=== PATIENT | female | born 1985 | race Caucasian/White ===

== ENCOUNTER 2017-02-21 08:08 | Emergency (ER) | payer MEDICAID ==
[~2017-02-21] VITALS: Ht 157.5 cm; Wt 65.0 kg
[~2017-02-21 08:08] MED LIST: ALBU6.7H INH; PRED10PA2 PO
[2017-02-21 08:11] VITALS: BP 134/70; PULSE 80; RESP 14; TEMP 97.9; O2SAT 99
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
[2017-02-21] MEDS ORDERED: BACT800T5 PO (08:32)
[2017-02-21] MEDS ORDERED: BACT2OIN TOPICAL (08:32)
== END 2017-02-21 08:57 | disposition home or self-care (01) ==
LOC: NEPK 08:08
DX: L03.113 Cellulitis of right upper limb (principal); D64.9 Anemia, unspecified; J45.909 Unspecified asthma, uncomplicated; F17.210 Nicotine dependence, cigarettes, uncomplicated
CPT/HCPCS: 99283

== ENCOUNTER 2017-04-30 00:29 | Emergency (ER) | payer MEDICAID ==
[~2017-04-30] VITALS: Ht 154.9 cm; Wt 70.0 kg
[~2017-04-30 00:29] MED LIST changes: +BACT2OIN TOPICAL; +BACT800T5 PO; -PRED10PA2 PO
[2017-04-30 00:31] VITALS: BP 107/67; PULSE 80; RESP 16; TEMP 98.4; O2SAT 99
[2017-04-30] MEDS ORDERED: ALBU1.25 NEB (01:38)
[2017-04-30] MEDS ORDERED: NEBULIZER1 MI1 (01:38)
--- NOTE | 2017-04-30 01:50 | PD ---
HPI Chief Complaint: Abdominal Pain Time Seen by Provider: 01:50 Travel History International Travel<30 days: No Contact w/Intl Traveler<30days: No Traveled to known affect area: No History of Present Illness HPI 31-year-old female came to the emergency room with history of flulike symptoms for past 1 day. Patient says that she went to [facility] and when she came back she was sneezing followed by some sore throat and her neck lymph nodes felt swollen. She has been nauseous and started to have diarrhea. She has had 5-6 episodes of diarrhea that are mostly watery and nonbloody. She took some NyQuil earlier yesterday. Her vital signs were stable in the triage. No known sick contacts otherwise. [facility] Past Medical History Narrative Medical List of her past medical, surgical, social and family history was reviewed from the nursing note. Hx Anticoagulant Therapy: No Anemia: Yes Asthma: Yes Blood Disorders: No Cancer: No Cardiovascular Problems: No Chemotherapy: No Cerebrovascular Accident: No Diabetes: No Diminished Hearing: No Endocrine: No Gastrointestinal Disorders: Yes (N/V) Genitourinary: No Hypertension: No Immune Disorder: No Musculoskeletal: No Neurologic: No Psychiatric: No Reproductive: No Respiratory: Yes (ASTHMA) Immunizations Current: No ?: Unknown LMP: 04/05/17 : 5 Para: 3 Miscarriage: 1 : 1 Past Surgical History Section: No Hysterectomy: No Other Surgery: Yes (INCISION AND DRAINAGE OF ABSCESS THROAT) Social History Alcohol Use: Yes (social) Tobacco Use: Yes (1/2 pack) Substance Use: No Allergies-Medications (Allergen,Severity, Reaction): Coded Allergies: Ceclor (Verified Allergy, Severe, RASH, 04/30/17) Cleocin (Verified Allergy, Severe, 04/30/17) Codeine (Verified Allergy, Severe, Rash, 04/30/17) Ibuprofen (Verified Allergy, Severe, SOB, 04/30/17) Comments List of her allergies reviewed from the nursing note. Reported Meds & Prescriptions Reported Meds & Active Scripts Active Reported Albuterol Neb (Albuterol Sulfate) 1.25 Mg/3 Ml Neb 1.25 Mg NEB Q6HR NEB PRN Nebulizer 1 Mis Mis 1 Ea .ROUTE DIRECTED Proventil Hfa 6.7 GM Inh (Albuterol Sulfate) 90 Mcg/Act Aer 1 Puff INH Q4H PRN Narrative Medication List of her home medications reviewed from the nursing note. Review of Systems Except as stated in HPI: all other systems reviewed are Neg Physical Exam Narrative GENERAL: Awake, alert, anxious, significant distress SKIN: Focused skin assessment warm/dry. HEAD: Atraumatic. Normocephalic. EYES: Pupils equal and round. No scleral icterus. No injection or drainage. ENT: No nasal bleeding or discharge. Mucous membranes pink and moist. NECK: Trachea midline. No JVD. CARDIOVASCULAR: Regular rate and rhythm. No murmur appreciated. RESPIRATORY: No accessory muscle use. Clear to auscultation. Breath sounds equal bilaterally. GASTROINTESTINAL: Abdomen soft, non-tender, nondistended. Hepatic and splenic margins not palpable. MUSCULOSKELETAL: No obvious deformities. No clubbing. No cyanosis. No edema. NEUROLOGICAL: Awake and alert. No obvious cranial nerve deficits. Motor grossly within normal limits. Normal speech. PSYCHIATRIC: Appropriate mood and affect; insight and judgment normal. Data Data Last Documented VS Vital Signs Date Time Temp Pulse Resp B/P Pulse Ox O2 Delivery O2 Flow Rate FiO2 04/30/17 02:21 100 Room Air 04/30/17 00:31 98.4 80 16 107/67 Orders Basic Metabolic Panel (Bmp) (04/30/17 01:57) Complete Blood Count With Diff (04/30/17 01:57) Iv Access Insert/Monitor (04/30/17 01:57) Ecg Monitoring (04/30/17 01:57) Oximetry (04/30/17 01:57) Sodium Chloride 0.9% Flush (Ns Flush) (04/30/17 02:00) Blood Culture (04/30/17 01:57) C-Reactive Protein (Crp) (04/30/17 01:57) Sodium Chlor 0.9% 1000 Ml Inj (Ns 1000 M (04/30/17 02:00) Influenzae A/B Antigen (04/30/17 01:57) Urinalysis - C+S If Indicated (04/30/17 03:03) Morphine Inj (Morphine Inj) (04/30/17 03:45) Ondansetron Inj (Zofran Inj) (04/30/17 03:45) Morphine Inj (Morphine Inj) (04/30/17 03:39) Morphine Inj (Morphine Inj) (04/30/17 04:39) Labs Laboratory Tests Test 04/30/17 04/30/17 02:15 03:20 White Blood Count 7.1 TH/MM3 Red Blood Count 4.60 MIL/MM3 Hemoglobin 12.8 GM/DL Hematocrit 38.6 % Mean Corpuscular Volume 83.9 FL Mean Corpuscular Hemoglobin 27.9 PG Mean Corpuscular Hemoglobin 33.3 % Concent Red Cell Distribution Width 15.0 % Platelet Count 163 TH/MM3 Mean Platelet Volume 9.0 FL Neutrophils (%) (Auto) 56.7 % Lymphocytes (%) (Auto) 25.6 % Monocytes (%) (Auto) 7.6 % Eosinophils (%) (Auto) 9.7 % Basophils (%) (Auto) 0.4 % Neutrophils # (Auto) 4.0 TH/MM3 Lymphocytes # (Auto) 1.8 TH/MM3 Monocytes # (Auto) 0.5 TH/MM3 Eosinophils # (Auto) 0.7 TH/MM3 Basophils # (Auto) 0.0 TH/MM3 CBC Comment DIFF FINAL Differential Comment Sodium Level 140 MEQ/L Potassium Level 3.7 MEQ/L Chloride Level 108 MEQ/L Carbon Dioxide Level 24.9 MEQ/L Anion Gap 7 MEQ/L Blood Urea Nitrogen 6 MG/DL Creatinine 0.76 MG/DL Estimat Glomerular Filtration 89 ML/MIN Rate Random Glucose 76 MG/DL Calcium Level 8.2 MG/DL C-Reactive Protein 2.42 MG/DL Urine Color LIGHT-YELLOW Urine Turbidity CLEAR Urine pH 7.0 Urine Specific [place] 1.007 Urine Protein NEG mg/dL Urine Glucose (UA) NEG mg/dL Urine Ketones NEG mg/dL Urine Occult Blood SMALL Urine Nitrite NEG Urine Bilirubin NEG Urine Urobilinogen LESS THAN 2.0 MG/DL Urine Leukocyte Esterase NEG Urine RBC 3 /hpf Urine WBC 1 /hpf Urine Squamous Epithelial 2 /hpf Cells Urine Bacteria RARE /hpf Urine Mucus FEW /lpf Microscopic Urinalysis Comment CULT NOT INDICATED MDM Medical Decision Making Medical Screen Exam Complete: Yes Emergency Medical Condition: Yes Medical Record Reviewed: Yes Differential Diagnosis Viral illness, UTI Narrative Course 3:04 AM blood test results of back and CRP is elevated. Rest of the blood test results are within normal limits. Awaiting for the UA. Patient was given 1 L of IV fluid bolus. 3:52 AM I'm unable to explain the elevated CRP. However her blood test otherwise in the UA are all within normal limits. All her symptoms are otherwise very much suggestive of viral illness. I will discharge her home. Procedures EKG Prior to Arrival: No Diagnosis Primary Impression: Viral illness Referrals: Primary Care Physician Additional Instructions: Please return to the ER if the condition worsens or any other new concerns. Otherwise follow-up with your primary care in couple days. Take Tylenol/Motrin/ Advil/ibuprofen for your symptoms and drink plenty of fluids to keep herself hydrated. Med/Other Pt SpecificInfo: No Change to Meds Disposition: 01 DISCHARGE HOME Condition: Stable Macey Cruz MD Apr 30, 2017 01:50
[2017-04-30] MEDS ORDERED: SODIUM CHLORIDE 0.9% FLUSH 10 ML FLUSH IV FLUSH PRN (02:00)
[2017-04-30] MEDS ORDERED: SODIUM CHLOR 0.9% 1000 ML INJ 1,000 ML IV ONE (02:00)
[2017-04-30 02:21] VITALS: O2SAT 100
[2017-04-30 02:28] LABS: BASOPHIL % 0.4 % (0.0-2.0); EOSINOPHIL # 0.7 TH/MM3 (0-0.4); EOSINOPHIL % 9.7 % (0.0-4.0); HEMATOCRIT 38.6 % (35.0-46.0); HEMO FLAGS DIFF FINAL; LYMPH % 25.6 % (9.0-44.0); LYMPHOCYTE # 1.8 TH/MM3 (1.0-4.8); MEAN CELL VOLUME 83.9 FL (80.0-100.0); MEAN CORPUSCULAR HEMOGLOBIN 27.9 PG (27.0-34.0); MEAN CORPUSCULAR HGB CONC 33.3 % (32.0-36.0); MONO % 7.6 % (0.0-8.0); NEUT % 56.7 % (16.0-70.0); PLATELET COUNT 163 TH/MM3 (150-450); WHITE BLOOD COUNT 7.1 TH/MM3 (4.0-11.0)
[2017-04-30 02:46] LABS: BICARBONATE 24.9 MEQ/L (21.0-32.0); POTASSIUM 3.7 MEQ/L (3.5-5.1)
[2017-04-30] MEDS ORDERED: MORPHINE SULFATE 8 MG/ML INJ ONE ×2 (03:39→04:39)
[2017-04-30 03:41] LABS: BACTERIA, URINE RARE /hpf; BLOOD, URINE SMALL (NEG); GLUCOSE,URINE NEG (NEG); KETONE, URINE NEG (NEG); MUCUS URINE FEW /lpf (OCC); NITRITE,URINE NEG (NEG); SQUAMOUS EPITHELIAL CELL URINE 2 /hpf (0-5); URINE COLOR LIGHT-YELLOW (YELLW/STRAW)
[2017-04-30 03:42] LABS: COMMENT (UR) CULT NOT INDICATED; CULTURE IF INDICATED CULT NOT INDICATED
[2017-04-30] MEDS ORDERED: ONDANSETRON HCL 4 MG/2 ML VIAL IV PUSH ONE (03:45)
[2017-04-30] MEDS ORDERED: MORPHINE SULFATE 4 MG/ML INJ IV PUSH ONE (03:45)
== END 2017-04-30 05:10 | disposition home or self-care (01) ==
LOC: NEPE 00:29
DX: B34.9 Viral infection, unspecified (principal)
CPT/HCPCS: 80048; 81001; 85025; 86140; 87040; 87804; 96361; 96374; 96375; 99284; J2270; J2405; J7030

== ENCOUNTER 2017-06-14 10:38 | Emergency (ER) | payer MEDICAID ==
[~2017-06-14] VITALS: Ht 157.5 cm; Wt 65.0 kg
[~2017-06-14 10:38] MED LIST changes: +ALBU1.25 NEB; -BACT2OIN TOPICAL; -BACT800T5 PO; +NEBULIZER1 MI1
[2017-06-14 10:40] VITALS: BP 127/72; PULSE 78; RESP 15; TEMP 98.2; O2SAT 99
[2017-06-14] MEDS ORDERED: AMOX500C PO (11:20)
[2017-06-14 11:22] VITALS: BP 122/84; PULSE 75; RESP 16; TEMP 98.1; O2SAT 97
[2017-06-14] MEDS ORDERED: DEXAMETHASONE SOD PHOS 20 MG/5 ML VIAL OTHER ONE (11:45)
[2017-06-14] MEDS ORDERED: HYDR-3533 PO (11:48)
[2017-06-14] MEDS ORDERED: PERI0.126 SWISH-SPIT (11:48)
[2017-06-14] MEDS ORDERED: PRED-503 PO (11:48)
[2017-06-14] MEDS ORDERED: AUGM875T3 PO (11:48)
--- NOTE | 2017-06-14 11:48 | PD ---
HPI Chief Complaint: Oral / Dental Pain or Problem Time Seen by Provider: 11:18 Travel History International Travel<30 days: No Contact w/Intl Traveler<30days: No Traveled to known affect area: No History of Present Illness HPI 31-year-old woman [place]. She's been having pain and swelling since. She spent a course of amoxicillin. She still has pain and swelling The Right Side of Her Neck Discomfort Little Bit Worse. She Had an Episode at Work Last Time She Had Chest Pain and Trouble Breathing and Lightheadedness. She Not Really Taken Her Pain Medicines. She Followed up with Her Dentist on Saturday, 4 Days Ago, When She Had a Little Bit of Cutting on One Side of Her Gums. History Past Medical History Narrative Medical Asthma Influenza Vaccination: No LMP: EARLY MAY 2017 : 5 Para: 3 Social History Alcohol Use: Yes (social) Tobacco Use: Yes (1/2 pack) Allergies-Medications (Allergen,Severity, Reaction): Coded Allergies: cefaclor (Unverified Allergy, Severe, RASH, 06/14/17) clindamycin (Unverified Allergy, Severe, 06/14/17) codeine (Unverified Allergy, Severe, Rash, 06/14/17) ibuprofen (Unverified Allergy, Severe, SOB, 06/14/17) Reported Meds & Prescriptions Reported Meds & Active Scripts Active Reported Amoxicillin 500 Mg Cap 500 Mg PO QID Albuterol Neb (Albuterol Sulfate) 1.25 Mg/3 Ml Neb 1.25 Mg NEB Q6HR NEB PRN Proventil Hfa 6.7 GM Inh (Albuterol Sulfate) 90 Mcg/Act Aer 1 Puff INH Q4H PRN Review of Systems Except as stated in HPI: all other systems reviewed are Neg Physical Exam Narrative GENERAL: 31-year-old woman, no acute distress. SKIN: Focused skin assessment warm/dry. HEAD: Atraumatic. Normocephalic. EYES: Pupils equal and round. No scleral icterus. No injection or drainage. ENT: No nasal bleeding or discharge. Mucous membranes pink and moist. All her teeth of them pulled. She's got some maceration and irritation especially in the right buccal fold in the lower jaw, and in the left upper. There is no purulent drainage. NECK: Trachea midline. No JVD. Anterior cervical adenopathy in the right side. CARDIOVASCULAR: Regular rate and rhythm. No murmur appreciated. RESPIRATORY: No accessory muscle use. Clear to auscultation. Breath sounds equal bilaterally. GASTROINTESTINAL: Abdomen soft, non-tender, nondistended. Hepatic and splenic margins not palpable. MUSCULOSKELETAL: No obvious deformities. No clubbing. No cyanosis. No edema. NEUROLOGICAL: Awake and alert. No obvious cranial nerve deficits. Motor grossly within normal limits. Normal speech. PSYCHIATRIC: Appropriate mood and affect; insight and judgment normal. Data Data Last Documented VS Vital Signs Date Time Temp Pulse Resp B/P (MAP) Pulse Ox O2 Delivery O2 Flow Rate FiO2 06/14/17 11:22 98.1 75 16 122/84 (97) 97 Room Air [facility] Medical Decision Making Medical Screen Exam Complete: Yes Emergency Medical Condition: Yes Differential Diagnosis Infection, inflammation, pain, other Narrative Course Medical decision-making new para 31-year-old woman having pain and swelling following all her teeth removed for dentures. The digits are cutting her gums some. She has a swollen node on the right side is giving her a lot of discomfort. She's been on antibiotics, amoxicillin, but had worsening swelling recently. We'll recommend chlorhexidine rinse, short course of steroids, change in miotics too short course of Augmentin, close follow-up with her dentist. Diagnosis Primary Impression: Mouth pain Additional Impression: Lymphadenitis Additional Instructions: Use chlorhexidine rinse several times daily. Keep her dentures in and was instructed otherwise by her dentist. Follow-up with your dentist today. Use Lortab as needed for pain. Take steroids as prescribed. Med/Other Pt SpecificInfo: Prescription(s) given Scripts Prednisone (Deltasone) 20 Mg Tab 20 MG PO BID for 5 Days, #60 TAB 0 Refills Prov: Karan Christopher MD 06/14/17 Chlorhexidine Gluconate (Mouth) Liq (Peridex Liq) 0.12% Soln 15 ML SWISH-SPIT BID, #473 ML 0 Refills Prov: Karan Christopher MD 06/14/17 Hydrocodone-Acetaminophen (Lortab) 5-325 Mg Tab 1-2 TAB PO Q6H Y for PAIN, #12 TAB 0 Refills Prov: Karan Christopher MD 06/14/17 Amoxicillin-Clavulanate (Augmentin) 875-125 Mg Tab 1 TAB PO BID for Infection, #10 TAB 0 Refills Prov: Karan Christopher MD 06/14/17 Disposition: 01 DISCHARGE HOME Condition: Stable Karan Christopher MD Jun 14, 2017 11:48
== END 2017-06-14 12:08 | disposition home or self-care (01) ==
LOC: NEPD 10:38
DX: K13.79 Other lesions of oral mucosa (principal); I88.9 Nonspecific lymphadenitis, unspecified; R07.9 Chest pain, unspecified; R06.09 Other forms of dyspnea; R42 Dizziness and giddiness; J45.909 Unspecified asthma, uncomplicated; F17.200 Nicotine dependence, unspecified, uncomplicated; Z79.51 Long term (current) use of inhaled steroids; Z79.899 Other long term (current) drug therapy
CPT/HCPCS: 99284; J1100

== ENCOUNTER 2017-08-29 11:50 | Emergency (ER) | payer MEDICAID ==
[~2017-08-29] VITALS: Ht 157.5 cm; Wt 70.6 kg
[~2017-08-29 11:50] MED LIST changes: +AMOX500C PO; +AUGM875T3 PO; +HYDR-3533 PO; -NEBULIZER1 MI1; +PERI0.126 SWISH-SPIT; +PRED-503 PO
[2017-08-29 12:04] VITALS: BP 108/64; PULSE 75; RESP 16; TEMP 99.1; O2SAT 99
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
== END 2017-08-29 12:30 | disposition left against medical advice (07) ==
LOC: PHEFT 11:50
DX: S93.402S Sprain of unspecified ligament of left ankle, sequela (principal)
CPT/HCPCS: 99281

== ENCOUNTER 2017-10-16 16:21 | Emergency (ER) | payer MEDICAID ==
[~2017-10-16] VITALS: Ht 157.5 cm; Wt 70.0 kg
[2017-10-16 16:26] VITALS: BP 130/74; PULSE 75; RESP 16; TEMP 98.7; O2SAT 100
--- NOTE | 2017-10-16 17:28 | PD ---
HPI Chief Complaint: Oral / Dental Pain or Problem Time Seen by Provider: 17:19 Travel History International Travel<30 days: No Contact w/Intl Traveler<30days: No Traveled to known affect area: No History of Present Illness HPI 32 year old female here with right lower gum pain and swelling times one day. Symptom severity is moderate. No aggravating or alleviating factors. PFSH Past Medical History Hx Anticoagulant Therapy: No Anemia: Yes Asthma: Yes Blood Disorders: No Cancer: No Cardiovascular Problems: No Chemotherapy: No Cerebrovascular Accident: No Diabetes: No Diminished Hearing: No Endocrine: No Gastrointestinal Disorders: Yes (N/V) Genitourinary: No Hypertension: No Immune Disorder: No Implanted Vascular Access Dvce: No Musculoskeletal: No Neurologic: No Psychiatric: No Reproductive: No Respiratory: Yes (asthma) Immunizations Current: No ?: Not LMP: 10/03/17 : 5 Para: 3 Miscarriage: 1 : 1 Past Surgical History Section: No Hysterectomy: No Oral Surgery: Yes Other Surgery: Yes (INCISION AND DRAINAGE OF ABSCESS THROAT) Social History Alcohol Use: Yes (social) Tobacco Use: Yes (1/2 pack) Substance Use: No Allergies-Medications (Allergen,Severity, Reaction): Coded Allergies: cefaclor (Unverified Allergy, Severe, RASH, 10/16/17) clindamycin (Unverified Allergy, Severe, 10/16/17) codeine (Unverified Allergy, Severe, Rash, 10/16/17) ibuprofen (Unverified Allergy, Severe, SOB, 10/16/17) Reported Meds & Prescriptions Reported Meds & Active Scripts Active No Active Prescriptions or Reported Medications Review of Systems Except as stated in HPI: all other systems reviewed are Neg Physical Exam Narrative GENERAL: Alert female. Nontoxic appearing. SKIN: Warm and dry. HEAD: Normocephalic. EYES: No injection or drainage. MOUTH: Right lower gum swelling and erythema. NECK: Supple, trachea midline. No JVD or lymphadenopathy. Data Data Last Documented VS Vital Signs Date Time Temp Pulse Resp B/P (MAP) Pulse Ox O2 Delivery O2 Flow Rate FiO2 10/16/17 17:27 10/16/17 16:26 98.7 75 16 100 Room Air Orders Orders Ed Discharge Order (10/16/17 17:24) MDM Medical Decision Making Medical Screen Exam Complete: Yes Emergency Medical Condition: Yes Differential Diagnosis Dental infection, aphthous ulcer, abscess Narrative Course 32-year-old female with mild oral infection. Vital signs are stable. Patient is nontoxic-appearing. Diagnosis Primary Impression: Dentalgia Referrals: Dentist Scripts Penicillin V Potassium (Penicillin V Potassium) 500 Mg Tab 500 MG PO Q6H for Infection for 7 Days, #28 TAB 0 Refills Prov: Marianela Rendon 10/16/17 Xnfdbfrk-Aohtwwbbhaqxvfz-Cwplhnqul Liq (Magic Mouthwash Adult Liq) 120 Ml Susp 10 ML SWISH-SWAL ACHS for Mouth sores, #120 ML 0 Refills Each 5mL contains: Nystatin 200,000units, Diphenhydramine 4.25mg, Viscous Lidocaine 10mg, [place] syrup 0.8 mL Prov: Marianela Rendon 10/16/17 Disposition: 01 DISCHARGE HOME Condition: Stable Marianela Rendon Oct 16, 2017 17:28
[2017-10-16] MEDS ORDERED: MAGICADU2 SWISH-SWAL (17:35)
[2017-10-16] MEDS ORDERED: PENI500T PO (17:35)
== END 2017-10-16 17:49 | disposition home or self-care (01) ==
LOC: PHED 16:21 → PHEFT 17:49
DX: K08.89 Other specified disorders of teeth and supporting structures (principal); F17.200 Nicotine dependence, unspecified, uncomplicated; D64.9 Anemia, unspecified; J45.909 Unspecified asthma, uncomplicated; Z88.5 Allergy status to narcotic agent; Z88.6 Allergy status to analgesic agent; Z88.8 Allergy status to other drugs, medicaments and biological substances
CPT/HCPCS: 99284

== ENCOUNTER 2017-11-03 17:40 | Emergency (ER) | payer MEDICAID ==
[~2017-11-03] VITALS: Ht 157.5 cm; Wt 71.0 kg
[~2017-11-03 17:40] MED LIST changes: -ALBU1.25 NEB; -ALBU6.7H INH; -AMOX500C PO; -AUGM875T3 PO; -HYDR-3533 PO; +MAGICADU2 SWISH-SWAL; +PENI500T PO; -PERI0.126 SWISH-SPIT; -PRED-503 PO
[2017-11-03 17:42] VITALS: BP 115/54; PULSE 72; RESP 16; TEMP 98.2; O2SAT 100
[2017-11-03] MEDS ORDERED: ALBUAER3 INH (18:08)
--- NOTE | 2017-11-03 18:08 | PD ---
HPI Chief Complaint: Cold / Flu Symptoms Time Seen by Provider: 17:56 Travel History International Travel<30 days: No Contact w/Intl Traveler<30days: No Traveled to known affect area: No History of Present Illness HPI 32-year-old female with PMH of asthma, current smoker presents to the ED for evaluation less than 48 hour history of headaches, sinus congestion, nonproductive cough, pleuritic chest pain. She endorses chills but has not measured a fever at home. She denies history of seasonal allergies. 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 She treated with OTC medications with no improvement of symptoms. PFSH Past Medical History Hx Anticoagulant Therapy: No Anemia: Yes Asthma: Yes Blood Disorders: No Cancer: No Cardiovascular Problems: No Chemotherapy: No Cerebrovascular Accident: No Diabetes: No Diminished Hearing: No Endocrine: No Gastrointestinal Disorders: Yes (N/V) Genitourinary: No Hypertension: No Immune Disorder: No Implanted Vascular Access Dvce: No Musculoskeletal: No Neurologic: No Psychiatric: No Reproductive: No Respiratory: Yes (asthma) Immunizations Current: No Influenza Vaccination: No ?: Not LMP: 10/26/17 : 5 Para: 3 Miscarriage: 1 : 1 Past Surgical History Section: No Hysterectomy: No Oral Surgery: Yes Other Surgery: Yes (INCISION AND DRAINAGE OF ABSCESS THROAT) Social History Alcohol Use: Yes (social) Tobacco Use: Yes (1/2 pack) Substance Use: No Allergies-Medications (Allergen,Severity, Reaction): Coded Allergies: cefaclor (Unverified Allergy, Severe, RASH, 11/03/17) clindamycin (Unverified Allergy, Severe, 11/03/17) codeine (Unverified Allergy, Severe, Rash, 11/03/17) ibuprofen (Unverified Allergy, Severe, SOB, 11/03/17) Reported Meds & Prescriptions Reported Meds & Active Scripts Active Proair Hfa 8.5 GM Inh (Albuterol Sulfate) 90 Mcg/Act Aer 2 Puff INH Q4-6H PRN 108 mcg/actuation Review of Systems Except as stated in HPI: all other systems reviewed are Neg Physical Exam Narrative AGENERAL: Well-nourished, well-developed nontoxic-appearing white female in no acute distress. SKIN: Warm and dry. HEAD: Normocephalic. Atraumatic. EYES: No scleral icterus. No injection or drainage. PERRLA. EOMI. ENT: Pearly hua tympanic membranes bilaterally. Bilateral serous effusion. Nasal mucosa is moist. Oropharynx without erythema, edema or exudate. NECK: Supple, trachea midline. No JVD or lymphadenopathy. CARDIOVASCULAR: Regular rate and rhythm without murmurs, gallops, or rubs. RESPIRATORY: Breath sounds clear and equal bilaterally. No accessory muscle use. GASTROINTESTINAL: Abdomen soft, non-tender, nondistended. + Bowel sounds MUSCULOSKELETAL: No cyanosis, or edema. BACK: Nontender without obvious deformity. No CVA tenderness. Data Data Last Documented VS Vital Signs Date Time Temp Pulse Resp B/P (MAP) Pulse Ox O2 Delivery O2 Flow Rate FiO2 11/03/17 17:49 100 Room Air 11/03/17 17:42 98.2 72 16 115/54 (74) Orders Orders Influenzae A/B Antigen (11/03/17 17:48) Ed Discharge Order (11/03/17 18:56) [facility] Medical Decision Making Medical Screen Exam Complete: Yes Emergency Medical Condition: Yes Differential Diagnosis Asthma exacerbation versus influenza versus viral syndrome versus sinusitis versus other Narrative Course 32-year-old female with PMH of asthma, current smoker presents to the ED for evaluation less than 48 hour history of headaches, sinus congestion, nonproductive cough, pleuritic chest pain. She endorses chills but has not measured a fever at home. She denies history of seasonal allergies. 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 Vitals reviewed. Physical exam reveals a nontoxic-appearing white female in no acute distress. There is bilateral serous abuse and tympanic membranes with exam is otherwise unremarkable. Flu swab negative. Patient requested a refill of her Proventil inhaler and this was provided. She is instructed to treat symptomatically with OTC medications, follow up with the primary care provider, return for worsening symptoms. She requested and was provided a work note. She is stable and discharged home. Diagnosis Primary Impression: Viral syndrome Referrals: Primary Care Physician Patient Instructions: General Instructions, How to Stop Smoking (ED), Viral Syndrome (ED) Additional Instructions: Rest, hydrate. Push fluids such as sports drinks, Pedialyte, popsicles, clear broth. Continue with symptomatic treatment. I recommended OTC medication containing a decongestant such as Mucinex D. Use inhaler as prescribed. Alternating Motrin and Tylenol every 4-6 hours as needed for continued fever. Increase handwashing frequently to avoid the spread of the virus to other family members and the community. Disinfect commonly touched surfaces such as light switches, microwaves, remote controls. Replace toothbrush at the end of this illness. Follow-up with the primary care provider this week. Return to the ED for any urgent or emergent medical condition. Med/Other Pt SpecificInfo: Prescription(s) given Scripts Albuterol 8.5 GM Inh (Proair Hfa 8.5 GM Inh) 90 Mcg/Act Aer 2 PUFF INH Q4-6H Y for SHORTNESS OF BREATH, #1 INHALER 0 Refills 108 mcg/actuation Prov: Terry Cardozo MD 11/03/17 Disposition: 01 DISCHARGE HOME Condition: Stable Poppy Hopper Nov 03, 2017 18:08
== END 2017-11-03 19:14 | disposition home or self-care (01) ==
LOC: PHEFT 17:40
DX: B34.9 Viral infection, unspecified (principal); J45.909 Unspecified asthma, uncomplicated; F17.210 Nicotine dependence, cigarettes, uncomplicated
CPT/HCPCS: 87804; 99283

== ENCOUNTER 2017-12-10 09:43 | Emergency (ER) | payer MEDICAID ==
[~2017-12-10 09:43] MED LIST changes: +ALBUAER3 INH; -MAGICADU2 SWISH-SWAL; -PENI500T PO
[2017-12-10 09:45] VITALS: BP 129/88; PULSE 77; TEMP 97.5; O2SAT 100
--- NOTE | 2017-12-10 10:46 | PD ---
HPI Chief Complaint: Pain: Acute or Chronic Time Seen by Provider: 10:44 Travel History International Travel<30 days: No Contact w/Intl Traveler<30days: No Traveled to known affect area: No History of Present Illness HPI 32-year-old female presents for evaluation of bilateral heel pain. Symptoms started one month ago. The pain is an aching pain in both of her heels which is worse when walking. The pain sometimes radiates into the calves. She reports that she seen her primary care physician and is in the process of being referred to an orthopedist but this has not yet been obtained and for this reason she presents here for evaluation. She denies any injuries. 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 She has no other complaints at this time. History Past Medical Histgory Hx Cancer: No Hx Chemotherapy: No Social History Alcohol Use: Yes (social) Tobacco Use: Yes (1/2 pack) Allergies-Medications (Allergen,Severity, Reaction): Coded Allergies: cefaclor (Unverified Allergy, Severe, RASH, 12/10/17) clindamycin (Unverified Allergy, Severe, 12/10/17) codeine (Unverified Allergy, Severe, Rash, 12/10/17) ibuprofen (Unverified Allergy, Severe, SOB, 12/10/17) Reported Meds & Prescriptions Reported Meds & Active Scripts Active Proair Hfa 8.5 GM Inh (Albuterol Sulfate) 90 Mcg/Act Aer 2 Puff INH Q4-6H PRN 108 mcg/actuation Review of Systems Musculoskeletal: Positive: Pain, No: Limited ROM Skin: Positive Other (denies open wounds) Physical Exam Narrative GENERAL: Well-developed well-nourished female in no acute distress SKIN: Warm and dry. No bruising or soft tissue swelling CARDIOVASCULAR: Regular rate and rhythm. No murmur appreciated. RESPIRATORY: No accessory muscle use. Clear to auscultation. Breath sounds equal bilaterally. MUSCULOSKELETAL: No obvious deformities. There is tenderness to palpation of the plantar aspect of both heels. Achilles tendon is intact and nontender. There is pain with dorsiflexion of both ankles. Calves are nontender. There is no lower extremity edema. There is no joint effusion. 2+ dorsalis pedis pulse bilaterally. Data Data Last Documented VS Vital Signs Date Time Temp Pulse Resp B/P (MAP) Pulse Ox O2 Delivery O2 Flow Rate FiO2 12/10/17 09:45 97.5 77 129/88 (102) 100 Room Air MDM Medical Screen Exam Complete: Yes Emergency Medical Condition: No Narrative Course Her examination and history are most consistent with plantar fasciitis. There is no emergent intervention required at this time. She is encouraged to follow- up with her primary care physician and orthopedist as she is being scheduled for. A medical screening exam was performed: At the time of evaluation the presenting medical condition was determined not to be of an emergent nature. The patient was given the option of receiving additional care, but declined. Patient was given options for additional community resources from which to obtain care. The Patient Has Been advised to seek medical attention for their presenting complaint. The patient has been advised to return to the ER at any time if an emergent condition develops. Primary Impression: Encounter for medical screening examination Arthur Kaur Dec 10, 2017 10:46
== END 2017-12-10 10:58 | disposition left against medical advice (07) ==
LOC: NEPK 09:43
DX: M79.671 Pain in right foot (principal); M79.672 Pain in left foot
CPT/HCPCS: 99281